=== PATIENT | male | born 1945 | race Caucasian/White ===

== ENCOUNTER 2021-03-13 17:54 | Outpatient (CLI) | payer MEDICARE, SELFPAY ==
--- NOTE | ~2021-03-13 | CT_ITS ---
EXAMINATION: CT sinus wo con EXAM DATE: 03/13/2021 18:44 INDICATION: Chronic sinusitis. TECHNIQUE: Spiral CT of the sinuses was acquired in the axial plane. Coronal and sagittal reformatte d images were also reviewed. The dose-length product (DLP) for this examination was 261.91 mGy-cm. Iterative reconstruction (ASIR) was used as dose reduction technique. Comparison is made to prior exa mination from 06/04/2014. FINDINGS: There is evidence of a prior small left maxillary sinus window procedure. There is mild t o moderate left frontal sinus mucoperiosteal thickening, minimal in the ethmoid and right maxillary s inuses. There is small left maxillary sinus retention cyst or polyp inferiorly. The ostiomeatal unit s are patent. There is no sinus wall thickening. Left-sided sofía bullosa. There is mild to mod erate rightward nasal septal deviation. The mastoid air cells and middle ears are well aerated. Ex ternal auditory canals are patent. The orbits and visualized soft tissues are unremarkable. Compared to 2013 essentially no interval change. IMPRESSION: 1. Mild to moderate left frontal sinus mucoperiosteal thickening, less other sinuses. 2. Mild to moderate rightward nasal septal deviation. Reviewed, dictated and finalized at location A. IMPRESSION: 1. Mild to moderate left frontal sinus mucoperiosteal thickening, less other s inuses. 2. Mild to moderate rightward nasal septal deviation.
== END 2021-03-13 17:55 | disposition home or self-care (01) ==
LOC: ANHIMG 17:55
PROVIDERS: PCP Family Medicine; Visit Provider Otolaryngology
DX: J32.9 Chronic sinusitis, unspecified (principal); J34.2 Deviated nasal septum
CPT/HCPCS: 70486

== ENCOUNTER 2023-05-06 07:00 | Outpatient (CLI) | payer MEDICARE, SELFPAY ==
[2023-05-06 07:39] LABS: Hematocrit 49.3 % (42.0-52.0); Hemoglobin 15.8 g/dL (14.0-18.0); Mean Corpuscular Hemoglobin 28.6 pg (26-34); Mean Corpuscular Volume 89.3 fl (80-100); Mean Platelet Volume 10.9 fl (7.4-10.4); Platelet Count Result 177 k/mm3 (150-375); Red Blood Count 5.52 M/mm3 (4.6-6.20); Red Cell Distribution Width 11.9 % (11.5-14.5); White Blood Count 7.5 K/mm3 (4.5-10.0)
[2023-05-06 07:42] LABS: Alanine Aminotransferase 41 U/L (6-50); Albumin Level 4.5 g/dL (3.5-5.1); Alkaline Phosphatase 104 U/L (38-126); Anion Gap 8 mmol/L (8-16); Aspartate Amino Transferase 31 U/L (17-59); Bilirubin,Total 0.9 mg/dL (0.2-1.3); Blood Urea Nitrogen 25 mg/dL (9-20); Calcium 8.8 mg/dL (8.4-10.2); Carbon Dioxide 26 mmol/L (22-30); Chloride 106 mmol/L (98-107); Cholesterol 230 mg/dL (0-200); Estimated Glomerular Filt Rate 59; Glucose 157 mg/dL (65-110); HDL Direct 38 mg/dL; Potassium 4.4 mmol/L (3.4-5.0); Sodium 140 mmol/L (137-145); Triglycerides 397 mg/dL (<150)
[2023-05-06 07:53] LABS: LDL Cholesterol Direct 92 mg/dL
[2023-05-06 08:12] LABS: Prostate Specific Antigen 1.2 ng/mL (< OR = 4.0)
[2023-05-06 08:29] LABS: Creatinine Urine 89.7 mg/dL
[2023-05-06 09:20] LABS: MALB Creatinine Ratio < 6.7 mg/g (0-30); Microalbumin Urine Random < 6.0 mg/L (0-16.7)
== END 2023-05-06 07:01 | disposition home or self-care (01) ==
PROVIDERS: PCP Family Medicine; Visit Provider Nurse Practitioner Family
DX: E78.5 Hyperlipidemia, unspecified (principal); E11.9 Type 2 diabetes mellitus without complications; Z13.29 Encounter for screening for other suspected endocrine disorder; Z12.5 Encounter for screening for malignant neoplasm of prostate
CPT/HCPCS: 36415; 80053; 80061; 82043; 84153; 84443; 85027; G0103

== ENCOUNTER 2023-12-28 14:47 | Outpatient (CLI) | payer MEDICARE, SELFPAY ==
--- NOTE | ~2023-12-28 | US_ITS ---
EXAMINATION: US scrotum doppler DATE: 12/28/2023 15:25 INDICATION: Left scrotal pain. TECHNIQUE: Grayscale and Doppler ultrasound images of the testes were obtained. COMPARISON: None. FINDINGS: The right testis measures 4.6 x 2.1 x 2.6 cm. The left testis measures 3.9 x 2.1 x 2.1 cm. There is normal vascular flow to both testes. The right epididymis is normal with normal vascular gayatri w. The left epididymis is normal with normal vascular flow. There is no hydrocele. There are bilatera l varicoceles. IMPRESSION: 1. Bilateral varicoceles. Reviewed, dictated and finalized at location E. IMPRESSION: 1. Bilateral varicoceles.
== END 2023-12-28 14:48 | disposition home or self-care (01) ==
PROVIDERS: PCP Family Medicine; Visit Provider Physician Assistant Medical
DX: N50.812 Left testicular pain (principal); N50.89 Other specified disorders of the male genital organs; I86.1 Scrotal varices
CPT/HCPCS: 76870; 93976

== ENCOUNTER 2024-03-07 14:45 | Outpatient (CLI) | payer MEDICARE, SELFPAY ==
--- NOTE | ~2024-03-07 | XR_ITS ---
3 VIEWS LUMBAR SPINE Ordering provider: HORACIO Price History: . M54.10 - Radiculopathy, site unspecified . Comparison: None. FINDINGS: VERTEBRAL BODIES: No visible fracture or subluxation. Degenerative changes of the spine DISK SPACES: Narrowing of the disc L1-L2, L2-L3, L3-L4, L4-L5 and L5-S1. Maximum changes seen at L5-S 1 and L1-L2. Facet joint disease seen at the level of L5-S1. SOFT TISSUES: Normal. IMPRESSION: No acute osseous abnormality lumbar spine. Reviewed, dictated and finalized at location A.
== END 2024-03-07 14:46 | disposition home or self-care (01) ==
PROVIDERS: PCP Family Medicine; Visit Provider Nurse Practitioner Family
DX: M54.10 Radiculopathy, site unspecified (principal)
CPT/HCPCS: 72110

== ENCOUNTER 2024-03-09 10:30 | Outpatient (RCR) | payer MEDICARE, SELFPAY ==
--- NOTE | 2024-03-05 12:27 | PTOPEVAL1 ---
Assessment and note entered by Evelin Hanks, PT Evaluation Information Assessment Status Evaluation Diagnosis radiculopathy Onset approx more than a month ago Subjective Information Pt reports a sudden onset pain to L side of lower back above belt line, recalled that during a BBQ on was when he first noticed the pain which got worse over time, pain is described as stabbing. At first, he was having a hard time putting shoes on, or picking/lifting pet dog up. States pain used to go down to L thigh but lately have not noticed it anymore, taking muscle relaxants and received steroid injection which improved the pain a lot. He reports feeling throbbing L hip pain with initial flat supine position, relieved with rolling to L side. He still feels some tightness and limitations in his mobility but the pain is minimal. Assessment PT Clinical Summary Pt presents with LBP and L sciatic nerve impingement symptoms, weakness and muscle instability, decreased standing and ambulation tolerance, postural and gait impairments which impact abilities to perform IADLs and community ambulation safely. He will benefit from skilled PT to reduce pain and or eliminate radicular symptoms, improve functional mobility and safety. Plan of Care Interventions Electrical Stimulation,Gait Training,Hot Pack/Cold Pack,Manual Therapy,Mechanical Traction,Neuro Re- education,Patient/Caregiver Education,Therapeutic Activities,Therapeutic Exercise,Ultrasound Other Interventions Dry Needling, IASTM PT Services Indicated Yes Treatment Frequency and 2x/wk x 10 visits Duration These treatments will address the objective and functional deficits as defined above. The patient will be advanced safely and appropriately in order for the patient to progress towards his/her prior level of function. Additional exercises will be introduced and as well as a comprehensive home exercise program upon discharge, if needed, ?to ensure carryover of functional gains achieved in the clinic. This treatment plan has been reviewed and agreement upon by the patient.
--- NOTE | 2024-05-03 10:31 | PCPTNOTE ---
Mr. Wallace attended a total of 2 treatment sessions. During his last session he stated that he was having increased pain with exercise and stopped performing his HEP. Treatment consisted of therapeutic exercise addressing flexibility and core strength, as well as modality care to address pain. He has failed to return to the clinic since 03/09/24 treatment sessions and will be discharged from our care. Thank you for the referral of this patient. Gonzalo Deng, MPT
== END 2024-05-03 12:17 | disposition home or self-care (01) ==
LOC: ANHPT 10:30
PROVIDERS: PCP Family Medicine; Visit Provider Family Medicine
DX: M54.10 Radiculopathy, site unspecified (principal)
CPT/HCPCS: 97014; 97110; 97161; 97530; G0283

== ENCOUNTER 2024-03-11 12:10 | Emergency (ER) | payer MEDICARE, SELFPAY ==
--- NOTE | ~2024-03-11 | CT_ITS ---
EXAMINATION: CT lumbar spine wo con DATE: 03/11/2024 12:46 INDICATION: Back pain TECHNIQUE: Computed tomography (CT) of the lumbar spine was performed without intravenous contrast. A utomated exposure control and iterative reconstruction technique were employed. The dose-length produ ct was 763.25 mGy-cm. COMPARISON: Lumbar spine radiographs dated 03/07/2024 FINDINGS: Minimal lumbar levocurvature. 2 mm retrolisthesis L1 on L2. Chronic minimal anterior wedging at T12 a nd L1. Remaining vertebral body heights are normal. No acute fracture. Moderate disc height loss at T 10-T11, L1-L2 and L5-S1 and mild disc height loss at the remaining levels from T12-L1 through L4-L5. Multilevel disc bulges throughout the lumbar spine most prominent with associated posterior endplate osteophytes at L1-L2 result in mild to moderate central canal stenosis. There is moderate multilevel lumbar facet osteoarthritis with hypertrophic changes which contribute to additional mild to moderate central canal stenosis at L2-L3 and L3-L4. Mild central canal stenosis at L4-L5. There is moderate n eural foraminal stenosis bilaterally at L1-L2 and L5-S1 and mild to moderate neural foraminal stenosi s at the intervening neural foramina. Mild to moderate bilateral sacroiliac osteoarthritis. There are few small sclerotic bone islands in the sacrum and right posterior iliac spine. Paravertebral soft t issues are unremarkable. IMPRESSION: 1. Moderate lumbar and lower thoracic spondylosis. Reviewed, dictated and finalized at location A.
--- NOTE | 2024-03-11 12:34 | ED.BACK ---
HPI - Back Pain/Injury General Chief Complaint: Back Pain/Injury Stated Complaint: back pain Time Seen by Provider: 03/11/24 12:12 History of Present Illness HPI Narrative: 78-year-old male presents emergency department for evaluation of low back pain that radiates into his left hip. Patient states symptoms have been ongoing since . Patient denies any specific incident of injury, denies any falls. Patient did have follow-up with his primary care physician was started on cyclobenzaprine which does not seem to be providing any significant relief. Patient states he has no associated numbness but does have shooting back pain that radiates down the leg. Related Data Home Medications Medication Instructions Recorded Confirmed fluticasone propionate 50 2 spray intranasal DAILY 01/26/21 02/14/24 mcg/actuation nasal spray,suspension (Flonase Allergy Relief) vit C 250 mg-vit E 90 mg-zinc 40 1 tablet PO BID 01/26/21 02/14/24 mg-copper 1 [id number] capsule (PreserVision AREDS-2) Allergies Allergy/AdvReac Type Severity Reaction Status Date / Time No Known Allergies Allergy Unknown Verified 02/14/24 10:24 Review of Systems Review of Systems: All systems reviewed & are unremarkable except as noted in HPI and below PMFSH Past Medical History Medical History (Updated 03/11/24 @ 13:12 by Jeremy Starks MD) Back pain with radiculopathy BMI 30.0-30.9,adult BMI 31.0-31.9,adult BMI 32.0-32.9,adult Hyperlipidemia Insomnia Insomnia Macular degeneration of right eye Meniscus, lateral, derangement Screening for prostate cancer Seasonal allergies Tonsillectomy planned Type 2 diabetes mellitus without complications Surgical History Surgical History History of cholecystectomy History of hernia repair Family History Family History Father Mother Diabetes mellitus Depression Other Alcohol abuse Heart disease Social History Social History Smoking status: Former smoker Second hand tobacco smoke exposure: Yes Smoking end date: 09/12/89 Alcohol intake: current Alcohol use details: rarely Substance use: never Substance use type: does not use Do You Feel Safe in your Home?: Yes Lack of Transportation: No Lack of Food: Never True Current Housing: I Have Housing Concerned About Future Housing: No Difficulty Paying Gas/Electric Bills: No Difficulty Paying for Meds: No Currently Unemployed: No Education: High School Diploma/GED Difficulty w/ Childcare or Family Care: No Living arrangements: with family Additional living arrangements comments: Occupation/Education: retired 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 HEAD: normocephalic, atraumatic. EYES: PERRLA/EOMI, conjunctivae clear. NOSE: Normal no drainage EARS:TMS clear with good light reflex. THROAT: Pharynx clear, no exudate. NECK: Supple. No adenopathy, no masses. RESPIRATORY: Airway patent, respirations nonlabored. Clear to auscultation bilaterally, no rales, rhonchi, wheezing. CARDIOVASCULAR: Regular rate and rhythm without murmurs rubs or gallops. ABDOMINAL: Soft, nontender, nondistended, normal bowel sounds MUSCULOSKELETAL: Left lower back and left buttock tenderness to palpation NEURO: Alert. Cranial nerves II through XII intact. Grossly intact SKIN: Warm, dry. Normal Color Course Course Emergency Course: Patient was updated on the results of his examination and the treatment plan for home.
[2024-03-11 12:35] VITALS: BP 145/82; PULSE 75; RESP 18; TEMP 36.6; O2SAT 100
[2024-03-11] MEDS: HYDROcodone/acetaminophen (*CRX) 5-325 MG TABLET 1 TAB PO (13:10)
[2024-03-11 13:33] VITALS: BP 133/84; PULSE 80; RESP 16; O2SAT 98
[2024-03-11 13:44] VITALS: BP 133/84; PULSE 80; RESP 16; O2SAT 98
== END 2024-03-11 13:45 | disposition home or self-care (01) ==
PROVIDERS: Emergency Provider Emergency Medicine; PCP Family Medicine
DX: M54.42 Lumbago with sciatica, left side (principal); E11.9 Type 2 diabetes mellitus without complications; E78.5 Hyperlipidemia, unspecified; H35.30 Unspecified macular degeneration; Z87.891 Personal history of nicotine dependence; Z90.49 Acquired absence of other specified parts of digestive tract; Z79.899 Other long term (current) drug therapy; M47.814 Spondylosis without myelopathy or radiculopathy, thoracic region; M47.816 Spondylosis without myelopathy or radiculopathy, lumbar region
CPT/HCPCS: 72131; 99284; A9270

== ENCOUNTER 2024-06-12 08:00 | Outpatient (CLI) | payer MEDICARE, SELFPAY ==
[2024-06-12 08:32] LABS: Hematocrit 48.4 % (42.0-52.0); Hemoglobin 15.4 g/dL (14.0-18.0); Mean Corpuscular HGB Conc 31.8 g/dl (32-36); Mean Corpuscular Volume 91.1 fl (80-100); Platelet Count Result 167 k/mm3 (150-375); Red Blood Count 5.31 M/mm3 (4.6-6.20); Red Cell Distribution Width 12.2 % (11.5-14.5); White Blood Count 6.8 K/mm3 (4.5-10.0)
[2024-06-12 08:47] LABS: Alanine Aminotransferase 28 U/L (6-50); Albumin Level 4.2 g/dL (3.5-5.1); Alkaline Phosphatase 96 U/L (38-126); Anion Gap 6 mmol/L (4-12); Aspartate Amino Transferase 22 U/L (17-59); Bilirubin,Total 1.2 mg/dL (0.2-1.3); Blood Urea Nitrogen 22 mg/dL (9-20); Calcium 8.7 mg/dL (8.4-10.2); Carbon Dioxide 28 mmol/L (22-30); Chloride 106 mmol/L (98-107); Cholesterol 145 mg/dL (0-200); Estimated Glomerular Filt Rate > 60; Glucose 156 mg/dL (65-110); HDL Direct 35 mg/dL; Sodium 140 mmol/L (137-145); Triglycerides 214 mg/dL (<150)
[2024-06-12 08:57] LABS: LDL Cholesterol Direct 55 mg/dL
[2024-06-12 09:14] LABS: Prostate Specific Antigen 1.2 ng/mL (< OR = 4.0)
[2024-06-12 09:22] LABS: Creatinine Urine 88.4 mg/dL
[2024-06-12 09:53] LABS: MALB Creatinine Ratio < 6.8 mg/g (0-30); Microalbumin Urine Random < 6.0 mg/L (0-16.7)
[2024-06-12 11:20] LABS: Hemoglobin A1C 7.8 % (<5.7)
== END 2024-06-12 08:01 | disposition home or self-care (01) ==
PROVIDERS: PCP Family Medicine; Visit Provider Family Medicine
DX: E11.9 Type 2 diabetes mellitus without complications (principal); E78.2 Mixed hyperlipidemia; Z12.5 Encounter for screening for malignant neoplasm of prostate; Z13.220 Encounter for screening for lipoid disorders
CPT/HCPCS: 36415; 80048; 80061; 80076; 82043; 83036; 84153; 84443; 85027; G0103

== ENCOUNTER 2024-09-18 10:40 | Emergency (ER) | payer MEDICARE, SELFPAY ==
--- NOTE | 2024-09-18 10:53 | ED.WOUNDLAC ---
HPI - Wound/Laceration General Chief Complaint: Wound/Laceration Stated Complaint: animal bite L hand 3 days ago Time Seen by Provider: 09/18/24 10:53 Source: patient, RN notes reviewed and old records reviewed Mode of arrival: ambulatory Limitations: no limitations History of Present Illness HPI narrative: Patient presents with complaints of dog bite to the left hand. He reports that dog that him and his are fostering became agitated and bit left hand 3 days ago. He reports that he has been keeping the affected area clean and covered, is up-to-date on tetanus shot, last tetanus was 2021. He reports that the only reason he is here today is because his daughter who is a nurse encouraged him to ?get checked out?. He is able to use the affected hand without any difficulty. He denies any fever, chills, sweats. He voices no other concerns or complaints at this time Related Data Home Medications ?Medication ?Instructions ?Recorded ?Confirmed ?Last Taken ?Type fluticasone propionate 50 2 spray intranasal DAILY 01/26/21 09/18/24 Unknown History mcg/actuation nasal spray,suspension (Flonase Allergy Relief) vit C 250 mg-vit E 90 mg-zinc 40 1 tablet PO BID 01/26/21 09/18/24 Unknown History mg-copper 1 [id number]-valtat-tghocd capsule (PreserVision AREDS-2) Allergies Allergy/AdvReac Type Severity Reaction Status Date / Time No Known Allergies Allergy Unknown Verified 09/18/24 10:44 Review of Systems Review of Systems: All systems reviewed & are unremarkable except as noted in HPI and below Constitutional: Constitutional: Reports no additional constitutional complaints ENT: Reports system reviewed and no additional complaints, except as documented Cardiovascular: Cardiovascular: Reports no additional cardiovascular complaints Respiratory: Respiratory: Reports no additional respiratory complaints Gastrointestinal: Gastrointestinal: Reports no additional gastrointestinal complaints Integumentary/Breasts: Skin/Breast: Reports system reviewed and no additional complaints, except as docu and Reports as per HPI [facility] Past Medical History Medical History (Reviewed 07/26/24 @ 08:36 by Kaitlyn Zamora [facility]) Back pain with radiculopathy Hyperlipidemia Insomnia Insomnia Macular degeneration of right eye Meniscus, lateral, derangement Pain in testicle Screening for prostate cancer Screening for thyroid disorder Seasonal allergies Tonsillectomy planned Type 2 diabetes mellitus without complications Varicocele Surgical History Surgical History History of hernia repair History of cholecystectomy Family History Family History Father Mother Diabetes mellitus Depression Other Alcohol abuse Heart disease Social History Social History Smoking status: Former smoker Second hand tobacco smoke exposure: Yes Smoking end date: 09/12/89 Alcohol intake: current Alcohol use details: rarely Substance use: never Substance use type: does not use Do You Feel Safe in your Home?: Yes Lack of Transportation: No Lack of Food: Never True Current Housing: I Have Housing Concerned About Future Housing: No Difficulty Paying Gas/Electric Bills: No Difficulty Paying for Meds: No Currently Unemployed: No Education: Trade/Vocational Certificate Difficulty w/ Childcare or Family Care: No Living arrangements: with family Additional living arrangements comments: Occupation/Education: retired 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 There is no relevant family history pertinent to the patient complaint. Exam Const: General: cooperative, no acute distress, alert and awake Orientation/consciousness: oriented to person, oriented to place and oriented to time HENMT: Head: normal to inspection Resp: Effort & Inspection: normal respiratory effort and able to speak in complete sentences Auscultation: clear to auscultation bilaterally, no crackles, no rales, no rhonchi and no wheezes Cardio: Palpation: normal PMI Rate: regular rate Rhythm: regular rhythm Heart sounds: S1 normal heart sound present and S2 normal heart sound present Neuro: General: oriented to person, oriented to place and oriented to time Cranial nerves: Yes CN's II-XII intact bilaterally Extrem: Hand/finger images:  1. 2 x 4 skin tear with puncture wound in center Psych: Appearance: grossly normal Thought process: Normal thought process present Insight: Good insight present (Psych) Judgement: Good judgement present (Psych) Course Course Level of Care: Express Care Visit Vital Signs Vital signs: Vital Signs Temperature 97.2 F L 09/18/24 10:57 Pulse Rate 92 09/18/24 10:57 Respiratory Rate 16 09/18/24 10:57 Blood Pressure 123/71 09/18/24 10:57 Pulse Oximetry 100 09/18/24 10:57 Oxygen Delivery Room Air 09/18/24 10:57 Temperature 97.2 F L 09/18/24 10:57 Pulse Rate 92 09/18/24 10:57 Respiratory Rate 16 09/18/24 10:57 Blood Pressure 123/71 09/18/24 10:57 Pulse Oximetry 100 09/18/24 10:57 Oxygen Delivery Room Air 09/18/24 10:57 Reviewed MDM - Wound/Laceration MDM Narrative Medical decision making narrative: Patient with dog bite to the left hand. No sign of infection, but did cover with doxycycline given dirty nature of the wound and patient diabetic status. He has full range of motion to the affected hand. Nontoxic appearing, stable for discharge home. Discharge instructions reviewed with patient, as well as provided in writing per nursing staff. The instructions also include specific and strict return/GO TO THE ER as well as f/u information. All questions have been answered, and the patient deny any further questions with discharge and discharge plan. Some parts of this dictation were generated by voice recognition software and may contain typographical and/or grammatical inaccuracies. Differential Diagnosis Differential diagnosis: Likely abrasion and avulsion of skin Medical Records Attestation: I reviewed the patient's medical records. Lab Data Attestation: I reviewed the patient's lab results. Discharge Plan Discharge Clinical Impression: Dog bite Patient Disposition: Home, Self-Care Condition: Stable Instructions: Antibiotic Form, Animal Bite (ED) Additional Instructions: Take medications as prescribed. Follow with primary care provider. Emergency department for new or worse symptoms Patient Language: Israeli Prescriptions: New doxycycline hyclate 100 mg tablet 100 mg PO BID Qty: 14 0RF No Action fluticasone propionate [Flonase Allergy Relief] 50 mcg/actuation spray,suspension 2 spray intranasal DAILY Rx Instructions: administer into each nostril PreserVision AREDS-2 250-90-40-1 mg capsule 1 tablet PO BID (DME) lancets 30 gauge misc See Rx Instructions .Route Qty: 100 2RF Rx Instructions: Check glucose bid for diabetes (DME) OneTouch Ultra Test Strip See Rx Instructions .Route Qty: 100 3RF Rx Instructions: Check glucose bid diabetes omega-3 fatty acids 1,000 mg capsule 1,000 mg PO QID Qty: 360 1RF Jardiance 25 mg tablet See Rx Instructions .ROUTE .COMPLEX Qty: 90 3RF Dose Instruction: TAKE 1 TABLET BY MOUTH DAILY Rx Instructions: TAKE 1 TABLET BY MOUTH DAILY atorvastatin 80 mg tablet See Rx Instructions .ROUTE .COMPLEX Qty: 90 3RF Dose Instruction: TAKE 1 TABLET BY MOUTH EVERY NIGHT AT BEDTIME FOR HIGH CHOLESTEROL Rx Instructions: TAKE 1 TABLET BY MOUTH EVERY NIGHT AT BEDTIME FOR HIGH CHOLESTEROL (DME) FreeStyle Jeni 3 Sensor Device See Rx Instructions .Route Qty: 2 5RF Rx Instructions: As directed Follow-up/Referrals: Mariano Jimenez MD [Primary Care Provider] - 2 Weeks Time of Disposition: 11:08
[2024-09-18 10:57] VITALS: BP 123/71; PULSE 92; RESP 16; TEMP 36.2; O2SAT 100
== END 2024-09-18 11:17 | disposition home or self-care (01) ==
PROVIDERS: Emergency Provider Nurse Practitioner Family; PCP Family Medicine
DX: S61.412A Laceration without foreign body of left hand, initial encounter (principal); W54.0XXA Bitten by dog, initial encounter; Z87.891 Personal history of nicotine dependence; E78.5 Hyperlipidemia, unspecified; E11.9 Type 2 diabetes mellitus without complications; H35.30 Unspecified macular degeneration
CPT/HCPCS: 99213; G0463

== ENCOUNTER → 2025-01-22 11:11 | Outpatient (CLI) | payer MEDICARE, SELFPAY ==
--- NOTE | ~2025-01-22 | XR_ITS ---
Left elbow Technique: AP, oblique, and lateral views were obtained. Clinical History: Pain Findings: No acute fracture or dislocation is seen. Osseous alignment is anatomic. Joint spaces are p reserved. There is no displacement of the fat pads, and soft tissues are unremarkable. Impression: Unremarkable radiographs. Reviewed, dictated and finalized at location . Impression: Unremarkable radiographs.
== END ==
LOC: EXPCRAD 11:15
PROVIDERS: PCP Family Medicine; Visit Provider Family Medicine
DX: M25.522 Pain in left elbow (principal)
CPT/HCPCS: 73080